=== PATIENT | female | born 1985 | race Caucasian/White ===

== ENCOUNTER → 2019-03-28 15:07 | Outpatient (BNVA) | payer MEDICAID, SELFPAY | PROVIDERS: Family Provider Nurse Practitioner Family; PCP Nurse Practitioner Family; Visit Provider Nurse Practitioner Family | DX: N89.8 Other specified noninflammatory disorders of vagina (principal); R10.2 Pelvic and perineal pain; Z12.4 Encounter for screening for malignant neoplasm of cervix; N39.0 Urinary tract infection, site not specified; N76.0 Acute vaginitis; B96.89 Other specified bacterial agents as the cause of diseases classified elsewhere | CPT/HCPCS: 36415; 80053; 81003; 85025; 87070; 87491; 87591; 87661; 88175 ==

== ENCOUNTER → 2019-04-19 10:30 | Outpatient (BNVA) | payer MEDICAID, SELFPAY | PROVIDERS: Family Provider Nurse Practitioner Family; PCP Nurse Practitioner Family; Visit Provider Nurse Practitioner Family | DX: N39.0 Urinary tract infection, site not specified (principal); N73.9 Female pelvic inflammatory disease, unspecified; A74.9 Chlamydial infection, unspecified | CPT/HCPCS: 81003 ==

== ENCOUNTER 2019-04-26 19:24 | Emergency (ER) | payer MEDICAID, SELFPAY ==
[2019-04-26 19:36] VITALS: BP 126/65; PULSE 64; RESP 16; TEMP 37; O2SAT 100; BMI 22.6
--- NOTE | 2019-04-26 19:48 | ED_ITS ---
Entered by Leandra Coats, acting as scribe for Dario Pyle DO HPI - Abdominal Pain General: Chief Complaint: Abdominal Pain Stated Complaint: vaginal pain Time Seen by Provider: 04/26/19 19:48 Source: patient Mode of arrival: ambulatory History of Present Illness: HPI narrative: 33 y/o female presents to the ED with complaint of abd pain and flank pain. Pt states she was seen at the [facility] and was dx with Chlamydia. She was started on abx and she is here tonight because her symptoms have not resolved. She reports pain that radiates into her pelvis, painful urination and malodorous discharge. MD elicited complaint: abdominal pain, flank pain and other (vaginal pain/discharge) Onset (ago): day(s) Pain Consistency: constant Location: RLQ, LLQ, L flank, R flank and Pelvis Relieving factors: nothing Context: recent antibiotic use Associated Symptoms: Reports dysuria; Denies chills, fever(s), hematochezia, melena, nausea and vomiting Related Data: Date of Last Menstrual Period: 04/11/19 Review of Systems Const: Denies: fever or chills Eyes: Denies: change in vision or blurry vision ENMT: Denies: painful swallowing, swelling of lips/tongue, bleeding gums or dental pain Card: Denies: chest pain, palpitations or swelling of feet/ankles Resp: Denies: shortness of breath or wheezing GI: Reports: abdominal pain; Denies: nausea, vomiting, rectal pain, blood in stool or black tarry stool : Reports: flank pain, painful urination, urinary urgency, vaginal odor, vaginal discharge and pelvic pain Musc: Reports: back pain; Denies: neck pain, redness or joint warmth Neuro: Denies: headache, dizziness, vertigo, confusion or seizure-like activity Psych: Denies: anxiety PFSH ED PFSH: Social History Smoking and tobacco status: never smoked Alcohol intake: never Lives independently: Yes Housing: Manufactured/Mobile home Marital status: Single History of recent travel: No Female Reproductive History: Date of last menstrual period: 04/11/19 Physical Exam Const: COMMON NORMALS: alert GENERAL APPEARANCE: well developed ORIENTATION/CONSCIOUSNESS: Yes awake, Yes oriented to person, Yes oriented to place and Yes oriented to time HENMT: COMMON NORMALS: normocephalic, external ears normal, external nose normal and moist oral mucous membranes HEAD & SCALP: normocephalic; no scalp tenderness FACE & SINUS: normal facial exam NOSE: external nose normal and no nasal discharge EXTERNAL EAR: Yes external ears normal MOUTH: tongue normal Eye: COMMON NORMALS: PERRL, EOMs intact bilaterally and conjunctivae normal EYELID: eyelids normal CONJUNCTIVA: Yes conjunctivae normal PUPIL: Yes PERRL Chest: COMMONS NORMALS: inspection of chest normal CHEST: Yes symmetrical chest wall rise and No tenderness Resp: COMMON NORMALS: clear to auscultation bilaterally EFFORT & INSPECTION: No tachypneic, No respiratory distress, No retractions, No uses accessory muscles and No tracheal deviation AUSCULTATION: clear to auscultation bilaterally, no rhonchi, no wheezes and lung sounds not diminished Cardio: COMMON NORMALS: regular rate and regular rhythm RATE: regular rate RHYTHM: regular rhythm HEART SOUNDS: no murmurs PERIPHERAL PULSES: radial pulses present GI: COMMON NORMALS: soft to palpation INSPECTION: No abdominal distension AUSCULTATION: No hyperactive bowel sounds and No hypoactive bowel sounds PALPATION: Yes soft, No guarding and No rigid PERCUSSION: no dullness to percussion and no tympanic to percussion : BLADDER/KIDNEY EXAM: Yes CVA tenderness EXTERNAL FEMALE EXAM: Yes normal appearance of the urethra and No external lesion SPECULUM EXAM - VAGINA: No vaginal lesion, No vaginal bleeding, No tissue present in vagina, No vaginal swelling, Yes vaginal tenderness and Yes vaginal discharge Vaginal discharge present: clear, white and other OB/EXTERNAL & SPECULUM: no tissue noted in vagina and vaginal bleeding Back/Pelvis: GENERAL BACK: Yes CVA tenderness Neuro: SENSORIUM/ORIENTATION: Yes alert, Yes oriented to person, Yes oriented to place and Yes oriented to time Psych: COMMON NORMALS: mental status grossly normal and speech normal SPEECH: Yes normal speech Course Vital Signs: Vital signs: Vital Signs Temperature 98.6 F 04/26/19 19:36 Pulse Rate 64 04/26/19 19:36 Respiratory Rate 16 04/26/19 19:36 Blood Pressure 126/65 04/26/19 19:36 Pulse Oximetry 100 04/26/19 19:36 MDM - Abdominal Pain MDM Narrative: Medical decision making narrative: 33-year-old female presents with pelvic pain and discharge. She has been treated for a positive chlamydia swab recently with doxycycline. She has an allergy to clarithromycin preventing her from having azithromycin. She may have failed doxycycline. In that case Levaquin would be used. She tested positive for group B strep as well on vaginal culture previously. Levaquin should cover this as well. Group B strep is resistant to tetracyclines. She will follow-up with her healthcare provider. Lab Data: Labs: Lab Results 04/26/19 Range/Units 20:35 Urine Color Yellow (Yellow) Urine Appearance Clear (CLEAR) Urine pH 6 (5-7) Ur Specific Gravit y 1.015 (1.005-1.030) Urine Protein Neg (Negative) Urine Glucose (UA) Norm (Normal) Urine Ketones Negative (Negative) Urine Blood Neg (Negative) Urine Nitrate Negative (Negative) Urine Bilirubin Neg (NEGATIVE) Urine Urobilinogen Norm (Negative) mg/dL Ur Leukocyte Natasha ase Negative (Negative) Discharge Plan Discharge Patient Disposition: Home, Self-Care Clinical Impression: Bacterial vaginal infection Condition: Stable Prescriptions: New Levaquin 500 mg tablet 500 mg PO DAILY 7 Days Qty: 7 RF: 0 ketorolac 10 mg tablet 10 mg PO TID PRN (Reason: pain) Qty: 10 RF: 0 Discharge Orders: Discharge Order (Routine); Ordered 04/26/19 Ordered By: Dario Pyle Referrals: Candy Ogden [Family Provider] - 4-7 days Discharge Diet: Usual diet Discharge Activity: Increase activity as tolerated Patient Instructions: Bacterial Vaginosis (ED) Activity Restrictions/Additional Instructions: Return for fever greater than 100, worsening pain despite treatment, vomiting, other concerning symptoms Coding Level of Care Code ED Angle Bender for Chg Fwd Exam Comprehensive The documentation recorded by the Jorge L arora Ashley, accurately reflects the service I personally performed and the decisions made by Edenilson lopez Jeremy John, DO Apr 26, 2019 19:24
[2019-04-26 20:47] LABS: Add Urine Microscopic? NO
[2019-04-26 20:51] LABS: Urine Appearance Clear (CLEAR); Urine Color Yellow (Yellow)
[2019-04-26 20:52] LABS: Bilirubin Urine Neg (NEGATIVE); Blood Urine Neg (Negative); Glucose Urine UA Norm (Normal); Ketones Urine Negative (Negative); Leukocyte Esterase Urine Negative (Negative); Nitrate Urine Negative (Negative); Protein Urine Neg (Negative); Specific Gravity, Urine 1.015 (1.005-1.030); Urobilinogen Urine Norm (Negative); pH Urine 6 (5-7)
[2019-04-26] MEDS: levoFLOXacin 500 mg Tablet PO (22:05)
[2019-04-26] MEDS: oxyCODONE-APAP 5-325 mg Tablet 2 TAB PO (22:07)
== END 2019-04-26 22:11 | disposition home or self-care (01) ==
PROVIDERS: Emergency Provider Emergency Medicine; Family Provider Nurse Practitioner Family
DX: N76.0 Acute vaginitis (principal); Z88.1 Allergy status to other antibiotic agents
CPT/HCPCS: 12345; 81003; 87210; 87491; 87591; 99283; A9270; E0352

== ENCOUNTER 2019-07-07 19:34 | Emergency (ER) | payer MEDICAID, SELFPAY ==
[2019-07-07 19:41] VITALS: BP 110/60; PULSE 62; RESP 16; TEMP 37.4; O2SAT 97; BMI 22.4
[2019-07-07 20:16] LABS: Basophils % 0.6 %; Eosinophils # 0.2 10^3/uL (0.0-0.8); Eosinophils % 2.7 %; Hematocrit 34.8 % (37.0-47.0); Hemoglobin 10.7 g/dL (11.5-15.3); Lymphocytes # 2.2 10^3/uL (0.8-4.8); Lymphocytes % 34.8 %; Mean Corpuscular HGB Conc 30.7 g/dL (30.0-36.0); Mean Corpuscular Hemoglobin 25.9 pg (28.0-34.0); Mean Corpuscular Volume 84.3 fL (81-99); Mean Platelet Volume 10.1 fL (7.4-10.4); Monocytes # 0.5 10^3/uL (0.2-0.9); Monocytes % 8.4 %; Neutrophils # 3.4 10^3/uL (1.8-7.7); Neutrophils % 53.2 %; Nucleated Red Blood Cells % 0 %; Platelet Count 291 10^3/cmm (130-400); Red Blood Count 4.13 10^6/uL (4.1-5.3); Red Cell Distribution Width 15.1 % (12.1-15.1); White Blood Count 6.3 10^3/uL (4.0-10.0)
[2019-07-07 20:24] LABS: INR 1.04 (0.8-1.2)
[2019-07-07 20:26] LABS: HCG, Serum Qual Negative (Negative)
[2019-07-07 20:34] LABS: Alanine Aminotransferase 11 U/L (0-33); Albumin Level 4.3 g/dL (3.5-5.2); Alkaline Phosphatase 54 IU/L (35-105); Anion Gap 13.9 (5-19); Aspartate Amino Transferase 13 U/L (0-32); Blood Urea Nitrogen 8 mg/dL (6-20); Calcium 9.7 mg/dL (8.5-10.5); Carbon Dioxide 24 mmol/L (22-29); Chloride 106 mmol/L (98-107); Globulin 2.9 g/dL (1.3-4.6); Glomerular Filtration Rate 71.7 mL/min (90-130); Glucose 92 mg/dL (65-115); Osmolality Calculated 286 mOsm/kg (285-295); Potassium 3.9 mmol/L (3.5-5.1); Sodium 140 mmol/L (136-145); Total Bilirubin 0.2 mg/dL (0.15-1.2); Total Protein 7.2 g/dL (6.6-8.7)
--- NOTE | 2019-07-07 20:36 | W.ED.FEMALGU ---
HPI - Female Genitourinary General: Chief complaint: Vaginal Bleeding Stated complaint: VAGINAL BLEEDING/PAIN; HX OF ENDOMETRIOSIS Time Seen by Provider: 07/07/19 19:47 History of Present Illness: HPI Narrative: Patient is a 34-year-old G4, P4 who is presenting today with a complaint of endometriosis. She says that she has had painful periods for a long time but is concerned today because she is had a period that started around June 21 and is still going on. She was seen at [facility] in April for endometriosis pain. She had an ultrasound there which she said showed endometriosis. She was given a follow-up with an SENIOR GENETIC COUNSELOR in [place] whom she has seen twice now. She was started on control pills but cannot remember when she started them. She said her bleeding has slowed down but is still heavier than just spotting. She is mainly complaining of pain. She also says she just overall does not feel well. She was also treated prior to her visit to [facility] for PID. 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 She has been taking ibuprofen and Tylenol at home without relief. MD elicited complaint: vaginal bleeding and pelvic pain Associated symptoms: Deny abdominal pain, headache(s) or nausea Date of Last Menstrual Period: 07/07/19 Related Data: : 4 Review of Systems General: Reports: 10 or more systems reviewed and unremarkable except in HPI and below Const: Denies: fever(s), chills, fatigue or malaise Eyes: Denies: change in vision ENMT: Denies: odynophagia Card: Denies: chest pain or swelling of feet/ankles Resp: Denies: dyspnea, productive cough or non-productive cough GI: Denies: abdominal pain, nausea or vomiting : Reports: vaginal bleeding and dysmenorrhea; Denies: flank pain or difficulty voiding Musc: Denies: neck pain or back pain Skin/Breast: Denies: rash Neuro: Denies: headache(s), numbness in extremities or weakness in extremities Gomez/Lymph: Denies: easy bruising or easy bleeding PFSH ED PFSH: Social History Smoking and tobacco status: never smoked Alcohol intake: never Lives independently: Yes Housing: Manufactured/Mobile home Marital status: Single History of recent travel: No Female Reproductive History: Date of last menstrual period: 07/07/19 control method: pills : 4 Para: 4 Spontaneous abortions: No Physical Exam Const: COMMON NORMALS: no acute distress, patient oriented x3, no limitations and alert GENERAL APPEARANCE: cooperative and comfortable HENMT: HEAD & SCALP: normal to inspection FACE & SINUS: normal facial exam Eye: GENERAL EYE: appearance normal, both eyes and all related structures Neck/C-Spine: COMMON NORMALS: supple, no meningeal signs and no JVD Chest: COMMONS NORMALS: normal inspection of the chest Resp: COMMON NORMALS: normal respiratory effort, No use of accessory muscles and clear to auscultation bilaterally AUSCULTATION: clear to auscultation bilaterally Cardio: COMMON NORMALS: no JVD, regular rate, regular rhythm and No murmurs present (Cardio) RATE: regular rate RHYTHM: regular rhythm GI: COMMON NORMALS: Normal to inspection, nondistended, normoactive bowel sounds present, Soft to palpation and non-tender INSPECTION: Yes normal to inspection AUSCULTATION: Yes normoactive bowel sounds PALPATION: Yes Soft to palpation Back/Pelvis: COMMON NORMALS: thoracic and lumbar spine normal to inspection Extremity: COMMON NORMALS: normal to inspection Neuro: COMMON NORMALS: patient oriented x3, moves all extremities, no focal motor deficits and no sensory deficits noted SENSORIUM/ORIENTATION: Yes alert MENINGEAL SIGNS: Yes no meningeal signs Psych: COMMON NORMALS: mental status grossly normal, cooperative and normal affect Skin: COMMON NORMALS: no rashes or lesions noted and turgor normal GENERAL SKIN EXAM: no rashes or lesions noted and turgor normal Course ED course: This patient is not . She is not significantly anemic. I recommended that she take ibuprofen, 600 mg and Tylenol 1000 mg at home for pain. She has follow-up with an SENIOR GENETIC COUNSELOR and had a recent ultrasound. I do not think there is anything further that we can do to either work-up or manage her symptoms here. We discussed the logic behind taking the control pills and she will continue those as prescribed. Vital Signs: Vital signs: Vital Signs Temperature 99.4 F 07/07/19 19:41 Pulse Rate 55 L 07/07/19 21:42 Respiratory Rate 16 07/07/19 21:42 Blood Pressure 110/60 07/07/19 21:42 Pulse Oximetry 98 07/07/19 21:42 MDM - Female Lab Data: Labs: Lab Results 07/07/19 07/07/19 07/07/19 Range/Units 20:00 20:00 20:00 WBC 6.3 (4.0-10.0) 10^3/ uL RBC 4.13 (4.1-5.3) 10^6/u L Hgb 10.7 L (11.5-15.3) g/dL Hct 34.8 L (37.0-47.0) % MCV 84.3 (81-99) fL MCH 25.9 L (28.0-34.0) pg MCHC 30.7 (30.0-36.0) g/dL RDW 15.1 (12.1-15.1) % Plt Count 291 (130-400) 10^3/c mm MPV 10.1 (7.4-10.4) fL Neut % (Auto) 53.2 % Lymph % (Auto) 34.8 % [place] % (Auto) 8.4 % Eos % (Auto) 2.7 % Baso % (Auto) 0.6 % Neut # (Auto) 3.4 (1.8-7.7) 10^3/u L Lymph # (Auto) 2.2 (0.8-4.8) 10^3/u L [place] # (Auto) 0.5 (0.2-0.9) 10^3/u L Eos # (Auto) 0.2 (0.0-0.8) 10^3/u L Baso # (Auto) 0.0 (0.0-0.1) 10^3/u L Nucleated RBC % (a uto) 0 % Nucleated RBCs # 0.0 /100WBC PT 14.00 H (10.5-13.3) SECO NDS INR 1.04 (0.8-1.2) Sodium 140 (136-145) mmol/L Potassium 3.9 (3.5-5.1) mmol/L Chloride 106 (98-107) mmol/L Carbon Dioxide 24 (22-29) mmol/L Anion Gap 13.9 (5-19) BUN 8 (6-20) mg/dL Creatinine 0.9 (0.5-0.9) mg/dL GFR Calculation 71.7 L (90-130) mL/min Glucose 92 (65-115) mg/dL Calculated Osmolal ity 286 (285-295) mOsm/k g Calcium 9.7 (8.5-10.5) mg/dL Total Bilirubin 0.2 (0.15-1.2) mg/dL AST 13 (0-32) U/L ALT 11 (0-33) U/L Alkaline Phosphata se 54 (35-105) IU/L Total Protein 7.2 (6.6-8.7) g/dL Albumin 4.3 (3.5-5.2) g/dL Globulin 2.9 (1.3-4.6) g/dL HCG, Qual (Negative) 07/07/19 Range/Units 20:00 WBC (4.0-10.0) 10^3/ uL RBC (4.1-5.3) 10^6/u L Hgb (11.5-15.3) g/dL Hct (37.0-47.0) % MCV (81-99) fL MCH (28.0-34.0) pg MCHC (30.0-36.0) g/dL RDW (12.1-15.1) % Plt Count (130-400) 10^3/c mm MPV (7.4-10.4) fL Neut % (Auto) % Lymph % (Auto) % [place] % (Auto) % Eos % (Auto) % Baso % (Auto) % Neut # (Auto) (1.8-7.7) 10^3/u L Lymph # (Auto) (0.8-4.8) 10^3/u L [place] # (Auto) (0.2-0.9) 10^3/u L Eos # (Auto) (0.0-0.8) 10^3/u L Baso # (Auto) (0.0-0.1) 10^3/u L Nucleated RBC % (a uto) % Nucleated RBCs # /100WBC PT (10.5-13.3) SECO NDS INR (0.8-1.2) Sodium (136-145) mmol/L Potassium (3.5-5.1) mmol/L Chloride (98-107) mmol/L Carbon Dioxide (22-29) mmol/L Anion Gap (5-19) BUN (6-20) mg/dL Creatinine (0.5-0.9) mg/dL GFR Calculation (90-130) mL/min Glucose (65-115) mg/dL Calculated Osmolal ity (285-295) mOsm/k g Calcium (8.5-10.5) mg/dL Total Bilirubin (0.15-1.2) mg/dL AST (0-32) U/L ALT (0-33) U/L Alkaline Phosphata se (35-105) IU/L Total Protein (6.6-8.7) g/dL Albumin (3.5-5.2) g/dL Globulin (1.3-4.6) g/dL HCG, Qual Negative (Negative) Discharge Plan Discharge Patient Disposition: Home, Self-Care Clinical Impression: Endometriosis Condition: Stable Prescriptions: No Action ketorolac 10 mg tablet 10 mg PO TID PRN (Reason: pain) Qty: 10 RF: 0 Discharge Orders: Discharge Order (Routine); Ordered 07/07/19 Ordered By: Anjali Beth Referrals: Candy Ogden [Family Provider] - Discharge Diet: Usual diet Discharge Activity: Resume usual activity Patient Instructions: Endometriosis (ED) Activity Restrictions/Additional Instructions: You can take 600 mg of ibuprofen (3 tablets of over the counter strength) every 6 hours AND 1000 mg of tylenol every 4 hours (two extra strength tablets) if you need to for pain. Call your SENIOR GENETIC COUNSELOR doctor in [place] for a follow up appointment. Continue the control pills as instructed. Discharge Date/Time: 07/07/19 21:44 Coding Level of Care Code ED Home Energy Auditor for Chg Fwd Exam Comprehensive
[2019-07-07] MEDS: ketorolac 30 mg/mL INJ 15 MG IVP (20:37)
[2019-07-07 20:38] VITALS: BP 111/63; PULSE 53; RESP 19; O2SAT 98
[2019-07-07 21:42] VITALS: BP 110/60; PULSE 55; RESP 16; O2SAT 98
== END 2019-07-07 21:44 | disposition home or self-care (01) ==
PROVIDERS: Emergency Provider Emergency Medicine; Family Provider Nurse Practitioner Family
DX: N80.9 Endometriosis, unspecified (principal)
CPT/HCPCS: 12345; 80053; 84703; 85025; 85610; 96374; 96375; 99282; 99283; J1885

== ENCOUNTER 2022-01-16 21:53 | Observation (INO) | payer MEDICAID, SELFPAY ==
--- NOTE | 2022-01-16 22:03 | ED_ITS ---
Documented by User: Justin Arias MD 01/28/22 21:32 HPI - Chest Pain General: Chief Complaint: Chest Pain Stated Complaint: CP Time Seen by Provider: 01/16/22 22:03 History of Present Illness: Ms. Mcclain is a 36-year-old lady without significant past medical history presenting to the emergency department due to chest pain. She reports a few day onset of scratchy throat and nasal congestion and subsequently mild to moderate intensity chest pain that started around 9 PM this evening. Reports generalized malaise and some lightheadedness. Intensity symptoms is moderate. Course has worsened. 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 No family history of early cardiac . No other risk factors for premature CAD. No other specific changes in health, exacerbating, or alleviating factors identified. Onset (ago): day(s) Timing of current episode: increasing Prior episodes: No Onset: during rest Pain location: substernal Severity: moderate Associated symptoms: Reports other Review of Systems General: Reports: 10 or more systems reviewed and unremarkable except in HPI and below PFSH ED PFSH: Medical History Acute urinary tract infection Surgical History History of partial hysterectomy Family History Denies family history of CAD (coronary artery disease) Social History Smoking and tobacco status: never smoked Alcohol intake: never Lives independently: Yes Housing: Manufactured/Mobile home Marital status: Single History of recent travel: No Female Reproductive History: Date of last menstrual period: 07/07/19 Para: 4 Spontaneous abortions: No Physical Exam Const: COMMON NORMALS: alert GENERAL APPEARANCE: cooperative and well developed HENMT: COMMON NORMALS: normocephalic and atraumatic HEAD & SCALP: normocephalic and atraumatic Eye: COMMON NORMALS: conjunctivae normal CONJUNCTIVA: Yes conjunctivae normal SCLERA: sclerae normal Neck/C-Spine: COMMON NORMALS: supple GENERAL: Yes trachea midline Resp: COMMON NORMALS: clear to auscultation bilaterally EFFORT & INSPECTION: Yes able to speak in complete sentences AUSCULTATION: clear to auscultation bilaterally Cardio: COMMON NORMALS: regular rate and regular rhythm RATE: regular rate RHYTHM: regular rhythm GI: COMMON NORMALS: Soft to palpation PALPATION: Yes Soft to palpation and No Tenderness to palpation present (GI) Extremity: GENERAL: Yes normal exam except as noted and No edema Neuro: COMMON NORMALS: moves all extremities SENSORIUM/ORIENTATION: Yes alert and No Orientation impaired Psych: COMMON NORMALS: mental status grossly normal and Normal thought process present THOUGHT PROCESS: Normal thought process present Course Vital Signs: Vital signs: Vital Signs Temperature 98.5 F 01/17/22 12:23 Pulse Rate 75 01/17/22 12:23 Respiratory Rate 18 01/17/22 12:23 Blood Pressure 105/70 01/17/22 12:23 Pulse Oximetry 98 01/17/22 12:23 Oxygen Delivery Me thod 01/17/22 11:51 MDM - Chest Pain Medical Decision Making 36-year-old female presenting with chest discomfort and a few day history of generalized illness. Nontoxic on exam. EKG shows sinus rhythm with nonspecific ST segment abnormalities, no STEMI. Handed off to Dr. Huff pending completion of ED evaluation. 36-year-old female checked out to me at shift change by Dr. Arias. I have examined this patient as well. This young lady admits to being somewhat confused. She does not believe she is thinking correctly. She is a little strange, and perhaps a bit paranoid at times. She is incredibly nice. Laboratory testing reveals a normal CBC. Originally, her sodium was 127, p otassium 3.1. Potassium was repleted. She was given a liter of IV fluid. Since her initial blood draw, however, the patient has had at least 432 ounce cups of water. When asked why, she believes that she is dehydrated, and is quite thirsty because of the low sodium, and significant free water intake, sodium is repeated and shows a sodium down to 123. Her mental status is a bit worse, and she agrees that it is. This is mildly to moderately concerning given the short time in which her sodium is fallen. Chest x-ray had been ordered and shows no acute findings. Head CT is nonacute as well. CT of the abdomen and pelvis shows prominent fluid in the small bowel reflecting an enterocolitis essentially. Her swabs are negative for COVID and influenza. She wishes to stay, as she is scared and feels quite unwell. She is given a second liter bolus of normal saline, and will be put on maintenance fluid with slow sodium repletion. She will be observed. Hospitalist is aware and has agreed to see the patient. Medical Records I reviewed the patient's medical records. Lab Data I reviewed the patient's lab results. 01/16/22 22:20 01/16/22 22:20 Radiology Impressions Chest X-Ray 01/16/22 22:18 IMPRESSION: No acute findings. Head CT 01/16/22 23:57 IMPRESSION: No acute intracranial abnormality. Abdomen/Pelvis CT 01/16/22 23:58 IMPRESSION: Prominent in the small bowel and colon may reflect an enterocolitis in the appropriate clinical setting. Laboratory Results WBC 7.9 10^3/uL (4.0-10.0) 01/16/22 22:20 RBC 4.69 10^6/uL (4.1-5.3) 01/16/22 22:20 Hgb 13.3 g/dL (11.5-15.3) 01/16/22 22:20 Hct 41.0 % (37.0-47.0) 01/16/22 22:20 MCV 87.4 fl (81-99) 01/16/22 22:20 MCH 28.4 pg (28.0-34.0) 01/16/22 22:20 MCHC 32.4 g/dL (30.0-36.0) 01/16/22 22:20 RDW 12.8 % (12.1-15.1) 01/16/22 22:20 Plt Count 186 10^3/cmm (130-400) 01/16/22 22:20 MPV 9.6 fL (7.4-10.4) 01/16/22 22:20 Neut % (Auto) 75.6 % 01/16/22 22:20 Lymph % (Auto) 13.0 % 01/16/22 22:20 [place] % (Auto) 9.5 % 01/16/22 22:20 Eos % (Auto) 1.1 % 01/16/22 22:20 Baso % (Auto) 0.3 % 01/16/22 22:20 Neut # (Auto) 5.95 10^3/uL (1.8-7.7) 01/16/22 22:20 Lymph # (Auto) 1.0 10^3/uL (0.8-4.8) 01/16/22 22:20 [place] # (Auto) 0.8 10^3/uL (0.2-0.9) 01/16/22 22:20 Eos # (Auto) 0.1 10^3/uL (0.0-0.8) 01/16/22 22:20 Baso # (Auto) 0.0 10^3/uL (0.0-0.1) 01/16/22 22:20 Nucleated RBC % (auto) 0 % 01/16/22 22:20 Nucleated RBCs # 0.0 /100WBC 01/16/22 22:20 Sodium 139 mmol/L (136-145) D 01/17/22 04:10 Potassium 3.3 mmol/L (3.5-5.1) L 01/17/22 04:10 Chloride 105 mmol/L (98-107) 01/17/22 04:10 Carbon Dioxide 20 mmol/L (22-29) L 01/17/22 04:10 Anion Gap 17.3 (5-19) 01/17/22 04:10 BUN 3 mg/dL (6-20) L 01/17/22 04:10 Creatinine 0.7 mg/dL (0.5-0.9) 01/17/22 04:10 GFR Calculation 94.7 mL/min (90-130) 01/17/22 04:10 Glucose 106 mg/dL (65-115) 01/17/22 04:10 Calculated Osmolality 285 mOsm/kg (285-295) 01/17/22 04:10 Uric Acid 3.1 mg/dL (2.4-5.7) 01/17/22 04:10 Calcium 9.1 mg/dL (8.5-10.5) 01/17/22 04:10 Total Bilirubin 0.4 mg/dL (0.15-1.2) 01/16/22 22:20 AST 36 U/L (0-32) H 01/16/22 22:20 ALT 75 U/L (0-33) H 01/16/22 22:20 Alkaline Phosphatase 63 U/L (35-105) 01/16/22 22:20 Troponin T Baseline 6 ng/L (0-10) 01/16/22 22:20 Troponin T 120 Minute 6.00 ng/L (0-10) 01/17/22 01:34 Delta Troponin T 0 ABS# (0-10) 01/17/22 01:34 Troponin T Hi Sens 6Hr 6.00 ng/L (0-10) 01/17/22 04:10 Troponin T Hi Sens 6Hr Delta 0 ng/L (0-12) 01/17/22 04:10 Total Protein 6.7 g/dL (6.6-8.7) 01/16/22 22:20 Albumin 3.8 g/dL (3.5-5.2) 01/16/22 22:20 Globulin 2.9 g/dL (1.3-4.6) 01/16/22 22:20 Procalcitonin 0.11 ng/mL (0-0.5) 01/17/22 04:10 TSH 2.62 uIU/mL (0.27-4.20) 01/17/22 04:10 TSH Cancelled 01/17/22 04:10 Random Cortisol 8.05 ug/dL (2.47-19.5) 01/17/22 04:10 Urine Color Colorless (Yellow) 01/16/22 22:54 Urine Appearance Clear (CLEAR) 01/16/22 22:54 Urine pH 6.5 (5-7) 01/16/22 22:54 Ur Specific [place] 1.000 (1.005-1.030) L 01/16/22 22:54 Urine Protein Neg (Negative) 01/16/22 22:54 Urine Glucose (UA) Norm (Normal) 01/16/22 22:54 Urine Ketones 1+ (Negative) H 01/16/22 22:54 Urine Blood Neg (Negative) 01/16/22 22:54 Urine Nitrate Negative (Negative) 01/16/22 22:54 Urine Bilirubin Neg (Negative) 01/16/22 22:54 Urine Urobilinogen Neg mg/dL (Negative) 01/16/22 22:54 Ur Leukocyte Esterase Negative (Negative) 01/16/22 22:54 Ur Random Sodium 10 mmol/L 01/16/22 22:54 Urine Opiates Screen Negative ng/mL (Negative) 01/16/22 22:54 Ur Barbiturates Screen Negative ng/mL (Negative) 01/16/22 22:54 Ur Phencyclidine Scrn Negative ng/mL (Negative) 01/16/22 22:54 Ur Amphetamines Screen Negative ng/mL (Negative) 01/16/22 22:54 U Benzodiazepines Scrn Negative ng/mL (Negative) 01/16/22 22:54 Urine Cocaine Screen Negative ng/mL (Negative) 01/16/22 22:54 U Marijuana (THC) Screen Negative ng/mL (Negative) 01/16/22 22:54 Influenza Type A Ag negative (Negative) 01/16/22 22:48 Influenza Type B Ag negative (Negative) 01/16/22 22:48 SARS-CoV-2 Ag (Rapid) negative (Negative) 01/16/22 22:48 Group A Strep Rapid Negative (Negative) 01/16/22 22:48 Discharge Plan Discharge Patient Disposition: Placed in Observation Admit Provider: Adalberto Aragon Clinical Impression: URI (upper respiratory infection), Gastroenteritis, Acute hyponatremia Discharge Diet: Regular Discharge Activity: Increase activity as tolerated Coding Level of Care Code ED Awning Maker for Chg Fwd Documented by User: Dario Pyle DO 01/17/22 03:11 HPI - Chest Pain General: Chief Complaint: Chest Pain Stated Complaint: CP Time Seen by Provider: 01/16/22 22:03 [facility] ED PFSH: Medical History Acute urinary tract infection Surgical History History of partial hysterectomy Family History Denies family history of CAD (coronary artery disease) Social History Smoking and tobacco status: never smoked Alcohol intake: never Lives independently: Yes Housing: Manufactured/Mobile home Marital status: Single History of recent travel: No Course Vital Signs: Vital signs: Vital Signs Temperature 98.5 F 01/17/22 12:23 Pulse Rate 75 01/17/22 12:23 Respiratory Rate 18 01/17/22 12:23 Blood Pressure 105/70 01/17/22 12:23 Pulse Oximetry 98 01/17/22 12:23 Oxygen Delivery Me thod 01/17/22 11:51 MDM - Chest Pain Medical Decision Making 36-year-old female checked out to me at shift change by Dr. Arias. I have examined this patient as well. This young lady admits to being somewhat co nfused. She does not believe she is thinking correctly. She is a little strange, and perhaps a bit paranoid at times. She is incredibly nice. Laboratory testing reveals a normal CBC. Originally, her sodium was 127, potassium 3.1. Potassium was repleted. She was given a liter of IV fluid. Sin ce her initial blood draw, however, the patient has had at least 432 ounce cups of water. When asked why, she believes that she is dehydrated, and is quite thirsty because of the low sodium, and significant free water intake, sodium is repeated and shows a sodium down to 123. Her mental status is a bit worse, and she agrees that it is. This is mildly to moderately concerning given the short time in which her sodium is fallen. Chest x-ray had been ordered and shows no acute findings. Head CT is nonacute as well. CT of the abdomen and pelvis shows prominent fluid in the small bowel reflecting an enterocolitis essentially. Her swabs are negative for COVID and influenza. She wishes to stay, as she is scared and feels quite unwell. She is given a second liter bolus of normal saline, and will be put on maintenance fluid with slow sodium repletion. She will be observed. Hospitalist is aware and has agreed to see the patient. Lab Data 01/16/22 22:20 01/16/22 22:20 Radiology Impressions Chest X-Ray 01/16/22 22:18 IMPRESSION: No acute findings. Head CT 01/16/22 23:57 IMPRESSION: No acute intracranial abnormality. Abdomen/Pelvis CT 01/16/22 23:58 IMPRESSION: Prominent in the small bowel and colon may reflect an enterocolitis in the appropriate clinical setting. Laboratory Results WBC 7.9 10^3/uL (4.0-10.0) 01/16/22 22: RBC 4.69 10^6/uL (4.1-5.3) 01/16/22 22:20 Hgb 13.3 g/dL (11.5-15.3) 01/16/22 22:20 Hct 41.0 % (37.0-47.0) 01/16/22 22:20 MCV 87.4 fl (81-99) 01/16/22 22:20 MCH 28.4 pg (28.0-34.0) 01/16/22 22: MCHC 32.4 g/dL (30.0-36.0) 01/16/22 22: RDW 12.8 % (12.1-15.1) 01/16/22 22:20 Plt Count 186 10^3/cmm (130-400) 01/16/22 22:20 MPV 9.6 fL (7.4-10.4) 01/16/22 22:20 Neut % (Auto) 75.6 % 01/16/22 22:20 Lymph % (Auto) 13.0 % 01/16/22 22:20 [place] % (Auto) 9.5 % 01/16/22 22:20 Eos % (Auto) 1.1 % 01/16/22 22:20 Baso % (Auto) 0.3 % 01/16/22 22:20 Neut # (Auto) 5.95 10^3/uL (1.8-7.7) 01/16/22 22:20 Lymph # (Auto) 1.0 10^3/uL (0.8-4.8) 01/16/22 22:20 [place] # (Auto) 0.8 10^3/uL (0.2-0.9) 01/16/22 22:20 Eos # (Auto) 0.1 10^3/uL (0.0-0.8) 01/16/22 22:20 Baso # (Auto) 0.0 10^3/uL (0.0-0.1) 01/16/22 22:20 Nucleated RBC % (auto) 0 % 01/16/22 22:20 Nucleated RBCs # 0.0 /100WBC 01/16/22 22:20 Sodium 139 mmol/L (136-145) D 01/17/22 04:10 Potassium 3.3 mmol/L (3.5-5.1) L 01/17/22 04:10 Chloride 105 mmol/L (98-107) 01/17/22 04:10 Carbon Dioxide 20 mmol/L (22-29) L 01/17/22 04:10 Anion Gap 17.3 (5-19) 01/17/22 04:10 BUN 3 mg/dL (6-20) L 01/17/22 04:10 Creatinine 0.7 mg/dL (0.5-0.9) 01/17/22 04:10 GFR Calculation 94.7 mL/min (90-130) 01/17/22 04:10 Glucose 106 mg/dL (65-115) 01/17/22 04:10 Calculated Osmolality 285 mOsm/kg (285-295) 01/17/22 04:10 Uric Acid 3.1 mg/dL (2.4-5.7) 01/17/22 04:10 Calcium 9.1 mg/dL (8.5-10.5) 01/17/22 04:10 Total Bilirubin 0.4 mg/dL (0.15-1.2) 01/16/22 22:20 AST 36 U/L (0-32) H 01/16/22 22:20 ALT 75 U/L (0-33) H 01/16/22 22:20 Alkaline Phosphatase 63 U/L (35-105) 01/16/22 22:20 Troponin T Baseline 6 ng/L (0-10) 01/16/22 22:20 Troponin T 120 Minute 6.00 ng/L (0-10) 01/17/22 01:34 Delta Troponin T 0 ABS# (0-10) 01/17/22 01:34 Troponin T Hi Sens 6Hr 6.00 ng/L (0-10) 01/17/22 04:10 Troponin T Hi Sens 6Hr Delta 0 ng/L (0-12) 01/17/22 04:10 Total Protein 6.7 g/dL (6.6-8.7) 01/16/22 22:20 Albumin 3.8 g/dL (3.5-5.2) 01/16/22 22:20 Globulin 2.9 g/dL (1.3-4.6) 01/16/22 22:20 Procalcitonin 0.11 ng/mL (0-0.5) 01/17/22 04:10 TSH 2.62 uIU/mL (0.27-4.20) 01/17/22 04:10 TSH Cancelled 01/17/22 04:10 Random Cortisol 8.05 ug/dL (2.47-19.5) 01/17/22 04:10 Urine Color Colorless (Yellow) 01/16/22 22:54 Urine Appearance Clear (CLEAR) 01/16/22 22:54 Urine pH 6.5 (5-7) 01/16/22 22:54 Ur Specific [place] 1.000 (1.005-1.030) L 01/16/22 22:54 Urine Protein Neg (Negative) 01/16/22 22:54 Urine Glucose (UA) Norm (Normal) 01/16/22 22:54 Urine Ketones 1+ (Negative) H 01/16/22 22:54 Urine Blood Neg (Negative) 01/16/22 22:54 Urine Nitrate Negative (Negative) 01/16/22 22:54 Urine Bilirubin Neg (Negative) 01/16/22 22:54 Urine Urobilinogen Neg mg/dL (Negative) 01/16/22 22:54 Ur Leukocyte Esterase Negative (Negative) 01/16/22 22:54 Ur Random Sodium 10 mmol/L 01/16/22 22:54 Urine Opiates Screen Negative ng/mL (Negative) 01/16/22 22:54 Ur Barbiturates Screen Negative ng/mL (Negative) 01/16/22 22:54 Ur Phencyclidine Scrn Negative ng/mL (Negative) 01/16/22 22:54 Ur Amphetamines Screen Negative ng/mL (Negative) 01/16/22 22:54 U Benzodiazepines Scrn Negative ng/mL (Negative) 01/16/22 22:54 Urine Cocaine Screen Negative ng/mL (Negative) 01/16/22 22:54 U Marijuana (THC) Screen Negative ng/mL (Negative) 01/16/22 22:54 Influenza Type A Ag negative (Negative) 01/16/22 22:48 Influenza Type B Ag negative (Negative) 01/16/22 22:48 SARS-CoV-2 Ag (Rapid) negative (Negative) 01/16/22 22:48 Group A Strep Rapid Negative (Negative) 01/16/22 22:48 Discharge Plan Discharge Patient Disposition: Placed in Observation Admit Provider: Adalberto Aragon Clinical Impression: URI (upper respiratory infection), Gastroenteritis, Acute hyponatremia Discharge Diet: Regular Discharge Activity: Increase activity as tolerated Coding Level of Care Code ED Awning Maker for Kunal Osman
[2022-01-16 22:08] VITALS: BP 126/82; PULSE 74; RESP 16; TEMP 36.6; O2SAT 99; BMI 20.7
[2022-01-16 22:14] VITALS: BP 131/57; PULSE 79; RESP 18; O2SAT 100
--- NOTE | 2022-01-16 22:18 | XRR_ITS ---
PROCEDURE INFORMATION: Exam: XR Chest Exam date and time: 01/16/2022 10:24 PM Age: 36 years old Clinical indication: Cough TECHNIQUE: Imaging protocol: Radiologic exam of the chest. Views: 1 view. COMPARISON: No relevant prior studies available. FINDINGS: Lungs: Unremarkable. No consolidation. Pleural spaces: Unremarkable. No pleural effusion. No pneumothorax. Heart/Mediastinum: Unremarkable. No cardiomegaly. Bones/joints: Unremarkable. XR/XR chest 1V portable [id number] IMPRESSION: No acute findings.
[2022-01-16 22:27] LABS: Basophils % 0.3 %; Eosinophils # 0.1 10^3/uL (0.0-0.8); Eosinophils % 1.1 %; Hemoglobin 13.3 g/dL (11.5-15.3); Mean Corpuscular HGB Conc 32.4 g/dL (30.0-36.0); Mean Corpuscular Hemoglobin 28.4 pg (28.0-34.0); Mean Corpuscular Volume 87.4 fl (81-99); Mean Platelet Volume 9.6 fL (7.4-10.4); Monocytes # 0.8 10^3/uL (0.2-0.9); Monocytes % 9.5 %; Neutrophils # 5.95 10^3/uL (1.8-7.7); Neutrophils % 75.6 %; Nucleated Red Blood Cells % 0 %; Platelet Count 186 10^3/cmm (130-400); Red Blood Count 4.69 10^6/uL (4.1-5.3); Red Cell Distribution Width 12.8 % (12.1-15.1); White Blood Count 7.9 10^3/uL (4.0-10.0)
[2022-01-16 22:41] LABS: Alanine Aminotransferase 75 U/L (0-33); Albumin Level 3.8 g/dL (3.5-5.2); Alkaline Phosphatase 63 U/L (35-105); Aspartate Amino Transferase 36 U/L (0-32); Blood Urea Nitrogen 4 mg/dL (6-20); Calcium 8.9 mg/dL (8.5-10.5); Carbon Dioxide 25 mmol/L (22-29); Chloride 91 mmol/L (98-107); Globulin 2.9 g/dL (1.3-4.6); Glomerular Filtration Rate 113.1 mL/min (90-130); Glucose 99 mg/dL (65-115); Osmolality Calculated 261 mOsm/kg (285-295); Sodium 127 mmol/L (136-145); Total Bilirubin 0.4 mg/dL (0.15-1.2); Total Protein 6.7 g/dL (6.6-8.7)
[2022-01-16] MEDS: acetaminophen 500 mg Tablet 1000 MG PO (22:50)
[2022-01-16] MEDS: ketorolac 30 mg/mL INJ 15 MG IVP (22:50)
[2022-01-16] MEDS: sodium chloride 0.9% 1,000 ML 999 ML IV (22:51)
--- NOTE | 2022-01-16 23:00 | ECG_ITS ---
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 Measurements Intervals [place] Rate: 65 P: 47 VT: 144 QRS: 52 QRSD: 86 T: -19 QT: 406 QTc: 424 Interpretive Statements SINUS RHYTHM NONSPECIFIC T-WAVE ABNORMALITY No previous ECG available for comparison Electronically Signed On 01-17-2022 19:05:20 SWITCH CLEANER by Marciano Flores M.D. [id number]
[2022-01-16 23:10] LABS: Anion Gap 14.1 (5-19); Potassium 3.1 mmol/L (3.5-5.1)
[2022-01-16 23:10] LABS: Add Urine Microscopic? NO; Charge for UA Resulting for Rev
[2022-01-16 23:14] VITALS: BP 120/52; PULSE 71; RESP 18; O2SAT 100
[2022-01-16 23:25] LABS: Troponin(5th) Baseline 6 ng/L (0-10)
[2022-01-16 23:27] LABS: Glucose Urine UA Norm (Normal); Protein Urine Neg (Negative); Urine Appearance Clear (CLEAR); Urine Color Colorless (Yellow); pH Urine 6.5 (5-7)
[2022-01-16 23:28] LABS: Bilirubin Urine Neg (Negative); Blood Urine Neg (Negative); Ketones Urine 1+ (Negative); Leukocyte Esterase Urine Negative (Negative); Nitrate Urine Negative (Negative); Urobilinogen Urine Neg (Negative)
[2022-01-16] MEDS: potassium chloride oral liq 20 mEq/15 mL UDC 40 MEQ PO (23:33)
[2022-01-16 23:43] LABS: Rapid Strep A Test Negative (Negative)
[2022-01-16 23:46] LABS: Influenza A by IFA negative (Negative); Influenza B by IFA negative (Negative)
[2022-01-16 23:48] LABS: SARS Covid-2 Antigen negative (Negative)
--- NOTE | 2022-01-16 23:57 | CTR_ITS ---
PROCEDURE INFORMATION: Exam: CT Head Without Contrast Exam date and time: 01/17/2022 12:15 AM Age: 36 years old Clinical indication: Pain; Altered mental status/memory loss; Headache; Additional info: ? AMS, headaches, congestion TECHNIQUE: Imaging protocol: Computed tomography of the head without contrast. Radiation optimization: All CT scans at this facility use at least one of these dose optimization techniques: automated exposure control; mA and/or kV adjustment per patient size (includes targeted exams where dose is matched to clinical indication); or iterative reconstruction. COMPARISON: No relevant prior studies available. RADIATION DOSE METRICS: Total DLP (mGy-cm): 962.33 FINDINGS: Brain: Normal. No hemorrhage. Unremarkable white matter. No mass effect. Cerebral ventricles: No ventriculomegaly. Paranasal sinuses: Visualized sinuses are unremarkable. No fluid levels. Mastoid air cells: Visualized mastoid air cells are well aerated. Bones/joints: Unremarkable. No acute fracture. Soft tissues: Unremarkable. CT/CT head wo con* [id number] IMPRESSION: No acute intracranial abnormality.
--- NOTE | 2022-01-16 23:58 | CTR_ITS ---
PROCEDURE INFORMATION: Exam: CT Abdomen And Pelvis With Contrast Exam date and time: 01/17/2022 12:18 AM Age: 36 years old Clinical indication: Abdominal pain; Additional info: ? AMS, abd/pelvic pain TECHNIQUE: Imaging protocol: Computed tomography of the abdomen and pelvis with contrast. Radiation optimization: All CT scans at this facility use at least one of these dose optimization techniques: automated exposure control; mA and/or kV adjustment per patient size (includes targeted exams where dose is matched to clinical indication); or iterative reconstruction. Contrast material: OMNIPAQUE 350; Contrast volume: 100 ml; Contrast route: INTRAVENOUS (IV); COMPARISON: CR (CHEST, ) 01/16/2022 10:24 PM RADIATION DOSE METRICS: Total DLP (mGy-cm): 376.86 FINDINGS: Liver: Normal. No mass. Gallbladder and bile ducts: Normal. No calcified stones. No ductal dilation. Pancreas: Normal. No ductal dilation. Spleen: Normal. No splenomegaly. Adrenal glands: Normal. No mass. Kidneys and ureters: Normal. No hydronephrosis. Stomach and bowel: Prominent in the small bowel and colon may reflect an enterocolitis in the appropriate clinical setting. Appendix: No evidence of appendicitis. Intraperitoneal space: Unremarkable. No free air. No significant fluid collection. Vasculature: Unremarkable. No abdominal aortic aneurysm. Lymph nodes: Unremarkable. No enlarged lymph nodes. Urinary bladder: Unremarkable as visualized. Reproductive: Unremarkable as visualized. Bones/joints: Unremarkable. No acute fracture. Soft tissues: Unremarkable. CT/CT abdomen pelvis w con* [id number] IMPRESSION: Prominent in the small bowel and colon may reflect an enterocolitis in the appropriate clinical setting.
[2022-01-17] VITALS (11 sets, daily range): BP systolic 105–114; BP diastolic 61–82; PULSE 66–80; RESP 16–18; TEMP 36.8–36.9; O2SAT 96–100
[2022-01-17] MEDS: iohexol 350 mg/mL 500 mL Btl (per mL) IV (00:19)
[2022-01-17 00:32] LABS: Amphetamines Screen Urine Negative (Negative); Barbiturates Screen Urine Negative (Negative); Benzodiazepines Screen Urine Negative (Negative); Cocaine Screen Urine Negative (Negative); Opiate Screen Urine Negative (Negative); PCP Screen Urine Negative (Negative); THC Screen Urine Negative (Negative)
--- NOTE | 2022-01-17 00:51 | ECG_ITS ---
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 Measurements Intervals [place] Rate: 71 P: 62 OR: 141 QRS: 60 QRSD: 91 T: 48 QT: 431 QTc: 471 Interpretive Statements SINUS RHYTHM Compared to ECG 01/16/2022 22:12:14 T-wave abnormality no longer present Electronically Signed On 01-17-2022 19:05:44 TYPE CASTING MACHINE OPERATOR by Marciano Flores M.D. [id number]
--- NOTE | 2022-01-17 01:09 | PC.NURSE ---
Pt has been drinking excessive amounts of water since arrival. Pt has been sneaking water from sink once told she couldnt have anymore. Estimated 4-5 'Yeti' cups of water. notified. Pt educated on over-hydration with hyponatremia and hypokalemia.
[2022-01-17 02:04] LABS: Anion Gap 11.7 (5-19); Blood Urea Nitrogen 4 mg/dL (6-20); Calcium 8.7 mg/dL (8.5-10.5); Carbon Dioxide 21 mmol/L (22-29); Chloride 94 mmol/L (98-107); Glomerular Filtration Rate 113.1 mL/min (90-130); Glucose 90 mg/dL (65-115); Osmolality Calculated 252 mOsm/kg (285-295); Potassium 3.7 mmol/L (3.5-5.1); Sodium 123 mmol/L (136-145)
[2022-01-17] MEDS: guaiFENesin-codeine UDC 10 mL PO (02:06)
[2022-01-17] MEDS: oxymetazoline 0.05% Nasal Spray 15 mL 2 SPRAY NOSTRIL-B (02:06)
[2022-01-17 02:14] LABS: Troponin 5 2HR Delta 0 ABS# (0-10)
[2022-01-17] MEDS: ipratropium-albuterol 3 mL Neb INHALATION (02:32)
[2022-01-17] MEDS: sodium chloride 0.9% 1,000 ML 999 ML IV (02:54)
--- NOTE | 2022-01-17 03:27 | PM.HP ---
Providers/Chief Complaint Chief Complaint: CP History of Present Illness Neyda Mcclain is a 36 year old female who presented to hospital with chief complaint of nasal congestion. Patient is stating that she has been struggling with sinus infection for last 4 days, she has not noticed any fever, nausea, vomiting chest pain however because of her nasal congestion it is harder for her to breathe through her nose that prompted her visit the ER. In the ER she was diagnosed with hyponatremia. Because of sore throat she has been drinking more than 10 big cups of water, her cup can contain up to 700 ml, she does not have any significant past medical history other than VSD. She does not smoke, drinks occasionally. No recent use of antibiotics. In the ER she was given IV fluids that dropped her sodium to 123, decision was made to admit her put her on fluid restriction COVID, influenza panel negative Review of Systems Const: Denies: fever(s) Eyes: Denies: change in vision ENMT: Denies: throat pain Card: Denies: chest pain Resp: Reports: dyspnea GI: Denies: abdominal pain : Denies: flank pain Musc: Denies: neck pain Skin/Breast: Denies: rash Neuro: Denies: headache(s) Psych: Reports: anxiety Endo: Denies: polyuria Gomez/Lymph: Denies: easy bruising All/Imm: Denies: urticaria Medications/Allergies Home Medications Medication Instructions Recorded Confirmed Last Taken Type ketorolac 10 mg tablet 10 mg PO TID PRN pain #10 tabs 04/26/19 Unknown Rx Allergies Allergy/AdvReac Type Severity Reaction Status Date / Time clarithromycin [From Biaxin] Allergy ALGY-Hives Verified 04/19/19 09:55 PFSH Acute PFSH: Medical History (Updated 01/17/22 @ 04:17 by Adalberto Aragon MD) Acute urinary tract infection Surgical History (Updated 01/17/22 @ 04:17 by Adalberto Aragon MD) History of partial hysterectomy Family History (Updated 01/17/22 @ 04:18 by Adalberto Aragon MD) Denies family history of CAD (coronary artery disease) Social History Smoking and tobacco status: never smoked Alcohol intake: never Lives independently: Yes Housing: Manufactured/Mobile home Marital status: Single History of recent travel: No Female Reproductive History: Date of last menstrual period: 07/07/19 Para: 4 Spontaneous abortions: No Vitals/I&O/Wt Last Vital Signs Temp 97.9 F 01/16/22 22:08 Pulse 68 01/17/22 03:14 Resp 18 01/17/22 03:14 BP 107/64 01/17/22 03:14 Pulse Ox 98 01/17/22 03:14 O2 Del Method 01/17/22 02:33 01/16/22 01/16/22 01/17/22 14:59 22:59 06:59 Intake Total 1000 / 1000 Balance 1000 / 1000 Weight last 48 hrs Weight 54.885 kg Physical Exam Narrative: Young female NIH 0 Anxious appearing S1, S2 Nasal congestion No audible stridor or wheezing Abdomen soft Nonfocal neuro exam No skin rash Looks euvolemic Data 01/16/22 22:20 01/17/22 01:34 A&P Assessment and plan (1) Gastroenteritis: (2) Acute hyponatremia: (3) URI (upper respiratory infection): Plan Enterocolitis Acute hyponatremia Nasal congestion No signs of fever I would not give her any antibiotics Flonase and pseudoephedrine 1 dose DuoNeb Hyponatremia within settings of polydipsia, Patient has been drinking a lot of water lately because of sore throat Fluid restriction 800 mL/day Her sodium worsened with use of IV fluids in the ER requested hyponatremia work-up Patient is stating she is voiding clear-colored urine Enterocolitis No signs of sepsis I would give patient p.o. ciprofloxacin and Flagyl to avoid giving fluids through IV to biotics Full code Regular diet DVT prophylaxis on board Attestations Medical Necessity Statement*: Anticipating discharge within 48 hours Time Spent in Patient Care: 30 Coding Level of Care Code Acute Regulatory Coordinator for Kunal Osman Diagnoses Gastroenteritis K52.9 Acute hyponatremia E87.1 URI (upper respiratory infection) J06.9
[2022-01-17 04:07] LABS: Urine Random Sodium 10 mmol/L
[2022-01-17 04:35] LABS: Uric Acid 3.1 mg/dL (2.4-5.7)
[2022-01-17 04:39] LABS: Troponin 5 6HR Delta 0 ng/L (0-12)
[2022-01-17 04:42] LABS: Procalcitonin 0.11 ng/mL (0-0.5)
[2022-01-17 04:53] LABS: Cortisol Random 8.05 ug/dL (2.47-19.5)
[2022-01-17 06:33] LABS: Anion Gap 17.3 (5-19); Blood Urea Nitrogen 3 mg/dL (6-20); Calcium 9.1 mg/dL (8.5-10.5); Carbon Dioxide 20 mmol/L (22-29); Chloride 105 mmol/L (98-107); Glomerular Filtration Rate 94.7 mL/min (90-130); Glucose 106 mg/dL (65-115); Osmolality Calculated 285 mOsm/kg (285-295); Potassium 3.3 mmol/L (3.5-5.1); Sodium 139 mmol/L (136-145); Thyroid Stimulating Hormone 2.62 uIU/mL (0.27-4.20)
[2022-01-17] MEDS: metroNIDAZOLE 500 MG Tablet PO (07:33)
[2022-01-17] MEDS: enoxaparin 40 mg/0.4 mL Syringe SUBCUT (07:33)
[2022-01-17] MEDS: ciprofloxacin 500 mg Tablet PO (08:40)
[2022-01-17] MEDS: potassium chloride ER 20 mEq Tablet 40 MEQ PO (10:22)
[2022-01-17 10:52] LABS: Anion Gap 12.5 (5-19); Blood Urea Nitrogen 4 mg/dL (6-20); Calcium 9.3 mg/dL (8.5-10.5); Carbon Dioxide 25 mmol/L (22-29); Chloride 104 mmol/L (98-107); Glomerular Filtration Rate 94.7 mL/min (90-130); Glucose 116 mg/dL (65-115); Osmolality Calculated 282 mOsm/kg (285-295); Potassium 4.5 mmol/L (3.5-5.1); Sodium 137 mmol/L (136-145)
--- NOTE | 2022-01-17 11:43 | PC.CHAP ---
Pastoral Care Encounter/Spiritual Assessment Type of Contact [] Declined shoe shanker visit [] Patient/Family/Request visit [] Outpatient visit [] Follow-up visit [] Physician referral [] Code/Alert []x Routine visit [] Staff referral [] Actively dying [] Patient sleeping [] Family support [] [] Out of room [] Palliative care [] x] Receiving care in room [] Pre-surgical visit [] Trauma [] Long length of stay [] ICU visit [] Other: Relational/Emotional Strength [] Patient feels connected with others/family/visitors/staff [] Distress [] Loneliness/isolation [] Abandonment Spirituality of Patient [] Person of Jeannette [] Attends Congregational of their Jeannette [] Believes in Prayer [] Reads Bible or Latter-Day materials [] There are Spiritual issues to be addressed Stamp Maker Interventions [] Prayer [] Active listening [] Non-anxious presence [] Spiritual/emotional support [] Crisis/trauma care [] Spiritual counseling [] Bereavement support [] Provided bereavement packet [] Provided Bible/devotional materials [] Provided toy/stuffed animal, coloring book to patient or family member [] Provided Communion [] Anointing/[place] [] Salvation [] Completed spiritual assessment [] Other: Impact on Illness or Injury [] Angry [] Fearful [] Anxious [] Often cries [] Exhaustion [] Unable to work [] Unable to attend faith [] Unable to walk/stand [] Unable to read [] Unable to drive [] Unable to eat/drink [] Unable to sleep [] Unable to be with family [] Patient intubated [] Other: Summary Time spent with patient
--- NOTE | 2022-01-17 11:47 | P.DS_ITS ---
Discharge Providers Date of Admission: 01/17/22 04:31 Date of Discharge: January 17, 2022 Attending Provider at Admission: Adalberto Aragon MD Attending Provider at Discharge: Williams Tsai MD Diagnoses at Discharge Discharge Diagnosis (1) Gastroenteritis: Status: Acute (2) Acute hyponatremia: Status: Acute (3) URI (upper respiratory infection): Status: Acute Reason for Visit Reason for Visit: CP Hospital Course Hospital Course Neyda presented to the hospital with nasal congestion, sore throat and was found to be hyponatremic. This worsened in the emergency department and she was placed on observation. She had been drinking a significant amount of free water prior to her emergency department visit, concerned she might be dehydrated. She also received normal saline in the ER. When I evaluated her she stated she had some nasal congestion, but otherwise was doing well. She had been up and ambulatory. She felt significantly better and wished to go home. She wondered what she could take for nasal congestion. She had flu, coronavirus testing that was negative. There was some concerns with colitis on her CT. In discussion with the patient we agreed for 5 days total of antibiotics for this. She had h ad some loose stools and vomiting. Rapid strep was also completed and negative. At time of discharge her sodium was 137. She will follow-up with her primary care provider in 3 to 4 days with a BMP at that time. She was instructed to return sooner for any concerns. She agreed with the plan. Cortisol and TSH were checked and normal.No fluid restriction or salt tablets on discharge. Physical Exam Narrative: General exam no distress Neck is supple no lymphadenopathy thyromegaly Cardiovascular regular rate and rhythm Lungs clear Abdomen is soft, positive bowel sounds Extremities no sinus clubbing edema Neuro no focal deficits Discharge Data Studies Completed and Pending Completed Studies During Hospitalization Category Date Time Status CT abdomen pelvis w con* [id number] Stat Cat Scan 01/16/22 23:[address] head wo con* [id number] Stat Cat Scan 01/16/22 23:57 Completed XR chest 1V portable [id number] Stat Exams 01/16/22 22:18 Completed Pending at discharge Category Date Time Status Basic Metabolic Panel Q4H Lab 01/17/22 13:29 Ordered Basic Metabolic Panel Q4H Lab 01/17/22 17:29 Ordered Basic Metabolic Panel Q4H Lab 01/17/22 21:29 Ordered Osmolality Serum Routine Lab 01/17/22 Received Streptococcus Culture Group A Stat Lab 01/16/22 22:48 Received Radiology Impressions Chest X-Ray 01/16/22 22:18 IMPRESSION: No acute findings. Head CT 01/16/22 23:57 IMPRESSION: No acute intracranial abnormality. Abdomen/Pelvis CT 01/16/22 23:58 IMPRESSION: Prominent in the small bowel and colon may reflect an enterocolitis in the appropriate clinical setting. Laboratory Results WBC 7.9 10^3/uL (4.0-10.0) 01/16/22 22:20 RBC 4.69 10^6/uL (4.1-5.3) 01/16/22 22:20 Hgb 13.3 g/dL (11.5-15.3) 01/16/22 22:20 Hct 41.0 % (37.0-47.0) 01/16/22 22:20 MCV 87.4 fl (81-99) 01/16/22 22:20 MCH 28.4 pg (28.0-34.0) 01/16/22 22:20 MCHC 32.4 g/dL (30.0-36.0) 01/16/22 22:20 RDW 12.8 % (12.1-15.1) 01/16/22 22:20 Plt Count 186 10^3/cmm (130-400) 01/16/22 22:20 MPV 9.6 fL (7.4-10.4) 01/16/22 22:20 Neut % (Auto) 75.6 % 01/16/22 22:20 Lymph % (Auto) 13.0 % 01/16/22 22:20 [place] % (Auto) 9.5 % 01/16/22 22:20 Eos % (Auto) 1.1 % 01/16/22 22:20 Baso % (Auto) 0.3 % 01/16/22 22:20 Neut # (Auto) 5.95 10^3/uL (1.8-7.7) 01/16/22 22:20 Lymph # (Auto) 1.0 10^3/uL (0.8-4.8) 01/16/22 22:20 [place] # (Auto) 0.8 10^3/uL (0.2-0.9) 01/16/22 22:20 Eos # (Auto) 0.1 10^3/uL (0.0-0.8) 01/16/22 22:20 Baso # (Auto) 0.0 10^3/uL (0.0-0.1) 01/16/22 22:20 Nucleated RBC % (auto) 0 % 01/16/22 22:20 Nucleated RBCs # 0.0 /100WBC 01/16/22 22:20 Sodium 137 mmol/L (136-145) 01/17/22 10:11 Potassium 4.5 mmol/L (3.5-5.1) 01/17/22 10:11 Chloride 104 mmol/L (98-107) 01/17/22 10:11 Carbon Dioxide 25 mmol/L (22-29) 01/17/22 10:11 Anion Gap 12.5 (5-19) 01/17/22 10:11 BUN 4 mg/dL (6-20) L 01/17/22 10:11 Creatinine 0.7 mg/dL (0.5-0.9) 01/17/22 10:11 GFR Calculation 94.7 mL/min (90-130) 01/17/22 10:11 Glucose 116 mg/dL (65-115) H 01/17/22 10:11 Calculated Osmolality 282 mOsm/kg (285-295) L 01/17/22 10:11 Uric Acid 3.1 mg/dL (2.4-5.7) 01/17/22 04:10 Calcium 9.3 mg/dL (8.5-10.5) 01/17/22 10:11 Total Bilirubin 0.4 mg/dL (0.15-1.2) 01/16/22 22:20 AST 36 U/L (0-32) H 01/16/22 22:20 ALT 75 U/L (0-33) H 01/16/22 22:20 Alkaline Phosphatase 63 U/L (35-105) 01/16/22 22:20 Troponin T Baseline 6 ng/L (0-10) 01/16/22 22:20 Troponin T 120 Minute 6.00 ng/L (0-10) 01/17/22 01:34 Delta Troponin T 0 ABS# (0-10) 01/17/22 01:34 Troponin T Hi Sens 6Hr 6.00 ng/L (0-10) 01/17/22 04:10 Troponin T Hi Sens 6Hr Delta 0 ng/L (0-12) 01/17/22 04:10 Total Protein 6.7 g/dL (6.6-8.7) 01/16/22 22:20 Albumin 3.8 g/dL (3.5-5.2) 01/16/22 22:20 Globulin 2.9 g/dL (1.3-4.6) 01/16/22 22:20 Procalcitonin 0.11 ng/mL (0-0.5) 01/17/22 04:10 TSH 2.62 uIU/mL (0.27-4.20) 01/17/22 04:10 TSH Cancelled 01/17/22 04:10 Random Cortisol 8.05 ug/dL (2.47-19.5) 01/17/22 04:10 Urine Color Colorless (Yellow) 01/16/22 22:54 Urine Appearance Clear (CLEAR) 01/16/22 22:54 Urine pH 6.5 (5-7) 01/16/22 22:54 Ur Specific [place] 1.000 (1.005-1.030) L 01/16/22 22:54 Urine Protein Neg (Negative) 01/16/22 22:54 Urine Glucose (UA) Norm (Normal) 01/16/22 22:54 Urine Ketones 1+ (Negative) H 01/16/22 22:54 Urine Blood Neg (Negative) 01/16/22 22:54 Urine Nitrate Negative (Negative) 01/16/22 22:54 Urine Bilirubin Neg (Negative) 01/16/22 22:54 Urine Urobilinogen Neg mg/dL (Negative) 01/16/22 22:54 Ur Leukocyte Esterase Negative (Negative) 01/16/22 22:54 Ur Random Sodium 10 mmol/L 01/16/22 22:54 Urine Opiates Screen Negative ng/mL (Negative) 01/16/22 22:54 Ur Barbiturates Screen Negative ng/mL (Negative) 01/16/22 22:54 Ur Phencyclidine Scrn Negative ng/mL (Negative) 01/16/22 22:54 Ur Amphetamines Screen Negative ng/mL (Negative) 01/16/22 22:54 U Benzodiazepines Scrn Negative ng/mL (Negative) 01/16/22 22:54 Urine Cocaine Screen Negative ng/mL (Negative) 01/16/22 22:54 U Marijuana (THC) Screen Negative ng/mL (Negative) 01/16/22 22:54 Influenza Type A Ag negative (Negative) 01/16/22 22:48 Influenza Type B Ag negative (Negative) 01/16/22 22:48 SARS-CoV-2 Ag (Rapid) negative (Negative) 01/16/22 22:48 Group A Strep Rapid Negative (Negative) 01/16/22 22:48 Vitals Last Vital Signs Temp 98.5 F 01/17/22 05:05 Pulse 75 01/17/22 10:31 Resp 18 01/17/22 10:31 BP 105/70 01/17/22 05:05 Pulse Ox 98 01/17/22 10:31 O2 Del Method 01/17/22 10:31 Discharge Plan Discharge Patient Disposition: Home Condition: Stable Prescriptions: New metronidazole 500 mg Tablet 500 mg PO Q8H Qty: 12 0RF ciprofloxacin HCl 500 mg Tablet 500 mg PO BID Qty: 8 0RF Flonase Allergy Relief 50 mcg/actuation spray,suspension 2 spray intranasal DAILY Qty: 16 0RF Rx Instructions: administer into each nostril Discharge Orders: Discharge Order (Routine); Ordered 01/17/22 Ordered By: Williams Tsai Referrals: Noble Roche FNP-C [Nurse Practitioner] - 01/21/22 10:00 am (BRING ALL MEDICINES IN BOTTLES TO APPOINTMENT) Discharge Diet: Regular Discharge Activity: Increase activity as tolerated Patient Instructions: Ciprofloxacin (By mouth), Metronidazole (By mouth), Fluticasone (Into the nose), Upper Respiratory Infection (ED), Opioid Safety Activity Restrictions/Additional Instructions: Take all medicine as prescribed Make sure primary care provider is assigned and can follow patient up in 3 to 5 days BMP on follow-up Okay to rehydrate with Gatorade. Do not drink large amounts of free water Patient's Health Concerns: Low-sodium Assessment: Now resolved, likely secondary to drinking large amounts of free water during illness Plan of Treatment: Antibiotics as noted Recheck sodium as outpatient Goals: No recurrent hospitalizations Discharge Attestations Time Spent in Discharge Care*: greater than 30 min Quality Metrics Clinical Quality Measures [ No reported AMI, CVA or VTE this stay] Coding Level of Care Code Acute Chg FW DC note Diagnoses Gastroenteritis K52.9 Acute hyponatremia E87.1 URI (upper respiratory infection) J06.9
[2022-01-18 15:44] LABS: Osmolality Serum 257 mOsm/kg (278-305)
== END 2022-01-17 13:19 | disposition home or self-care (01) ==
LOC: ER 01-17 03:11 → MEDSURG 01-17 04:31
PROVIDERS: Emergency Medicine; Admitting Provider Internal Medicine; Emergency Provider Emergency Medicine; Visit Provider Internal Medicine
DX: K52.9 Noninfective gastroenteritis and colitis, unspecified (principal); E87.1 Hypo-osmolality and hyponatremia; J06.9 Acute upper respiratory infection, unspecified
CPT/HCPCS: 36415; 70450; 71045; 74177; 80048; 80053; 80306; 81003; 82533; 83930; 84145; 84300; 84443; 84484; 84550; 85025; 87081; 87426; 87804; 87880; 93005; 94640; 96361; 96372; 96374; 99285; G0378; J1650; J1885; J7030; Q9967

== ENCOUNTER 2022-11-01 09:00 | Emergency (ER) | payer MEDICAID, SELFPAY ==
[2022-11-01 09:10] VITALS: BP 143/66; PULSE 67; RESP 16; TEMP 36.5; O2SAT 100
--- NOTE | 2022-11-01 09:16 | W.ED.EAR ---
HPI - Ear Problem General: Chief complaint: Ear Stated complaint: right ear pain Time Seen by Provider: 11/01/22 09:02 Source: patient Mode of arrival: ambulatory Limitations: no limitations History of Present Illness: 37-year-old female states been having right-sided headache along with some tenderness over her ethmoid sinus she been having some pressure in her ear and right ear pain as well. She denies any severe pain denies any fever she had no cough or congestion. Denies any worsening proving factors Associated symptoms: Reports ear or mastoid pain and headache(s); Denies fever(s) or neck pain Review of Systems Const: Denies: fever(s) or chills ENMT: Reports: ear or mastoid pain; Denies: throat pain or dental pain Card: Denies: chest pain Resp: Denies: dyspnea GI: Denies: abdominal pain, nausea, vomiting or diarrhea Musc: Denies: neck pain or back pain Skin/Breast: Denies: rash Neuro: Reports: headache(s) PFS ED PFSH: Medical History Acute urinary tract infection Surgical History History of partial hysterectomy Family History Denies family history of CAD (coronary artery disease) Social History Smoking and tobacco status: never smoked Alcohol intake: never Substance/Drug Use: never Lives independently: Yes Housing: Manufactured/Mobile home Marital status: Single Female Reproductive History: Para: 4 Spontaneous abortions: No Physical Exam Const: COMMON NORMALS: no acute distress, average body habitus and patient oriented x3 HENMT: COMMON NORMALS: normocephalic and atraumatic HEAD & SCALP: normocephalic and atraumatic TYMPANIC MEMBRANE: TM normal on the right OTHER: tenderness over right ethmoid sinus Neck/C-Spine: COMMON NORMALS: supple Chest: COMMONS NORMALS: normal inspection of the chest Resp: COMMON NORMALS: normal respiratory effort Extremity: COMMON NORMALS: normal to inspection Neuro: COMMON NORMALS: patient oriented x3 Psych: COMMON NORMALS: mental status grossly normal Skin: COMMON NORMALS: no rashes or lesions noted GENERAL SKIN EXAM: no rashes or lesions noted Course Vital Signs: Vital signs: Vital Signs Temperature 97.7 F 11/01/22 09:10 Pulse Rate 65 11/01/22 09:20 Respiratory Rate 16 11/01/22 09:20 Blood Pressure 143/66 11/01/22 09:20 Pulse Oximetry 100 11/01/22 09:20 Oxygen Delivery Me thod Room Air 11/01/22 09:20 MDM - Ear Medical Decision Making pt presents here with head and ear pain. Pt tender over ethmoid sinus likely a sinusitis. no otitis media no signs of mastoiditis. Will place on keflex she is to return if worsening. Medical Records I reviewed the patient's medical records. No radiology studies performed this visit Discharge Plan Discharge Patient Disposition: Home Clinical Impression: Sinusitis Condition: Stable Prescriptions: New cephalexin 500 mg capsule 500 mg PO TID 7 Days Qty: 21 0RF No Action doxycycline hyclate 100 mg capsule 100 mg PO BID 10 Days Qty: 20 0RF Flonase Allergy Relief 50 mcg/actuation spray,suspension 2 spray intranasal DAILY Qty: 16 0RF Rx Instructions: administer into each nostril Discharge Orders: Discharge ED (Routine); Ordered 11/01/22 Ordered By: Kevin Huff Discharge Diet: Advance as tolerated Discharge Activity: Resume usual activity Patient Instructions: Sinusitis (ED) Coding Level of Care Code ED Personal Secretary for Kunal Osman
[2022-11-01 09:20] VITALS: BP 143/66; PULSE 65; RESP 16; O2SAT 100
[2022-11-01] MEDS: dexamethasone 10 mg/mL INJ IM (09:23)
[2022-11-01 09:43] VITALS: BP 107/44; PULSE 64; RESP 16; O2SAT 99
== END 2022-11-01 09:44 | disposition home or self-care (01) ==
PROVIDERS: Emergency Provider Emergency Medicine
DX: J32.9 Chronic sinusitis, unspecified (principal)
CPT/HCPCS: 96372; 99284; J1100

== ENCOUNTER → 2023-03-17 10:18 | Outpatient (BNVA) | payer MEDICAID, SELFPAY | PROVIDERS: Visit Provider Nurse Practitioner Family | DX: R52 Pain, unspecified (principal); R46.89 Other symptoms and signs involving appearance and behavior | CPT/HCPCS: 80053; 80307; 84443 ==

== ENCOUNTER 2023-12-06 19:21 | Inpatient (IN) | payer SELFPAY ==
[2023-12-06 19:23] VITALS: BP 120/66; PULSE 63; RESP 18; TEMP 36.9; O2SAT 99; BMI 19.5
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
--- NOTE | 2023-12-06 19:32 | ECG_ITS ---
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 Measurements Intervals [place] Rate: 59 P: 51 RI: 134 QRS: 52 QRSD: 76 T: 35 QT: 423 QTc: 420 Interpretive Statements SINUS BRADYCARDIA LOW QRS VOLTAGE IN PRECORDIAL LEADS [QRS DEFLECTION < 1.0 mV IN CHEST LEADS] SEPTAL MYOCARDIAL INFARCTION , OF INDETERMINATE AGE [40+ ms Q WAVE IN V1/V2] Compared to ECG 01/17/2022 00:51:33 Low QRS voltage now present Myocardial infarct finding now present Sinus rhythm no longer present Electronically Signed On 12-06-2023 22:39:06 CDT by Malissa Cheng M.D. [email or web address]
[2023-12-06 19:46] LABS: Bilirubin Urine Negative (Negative); Blood Urine Negative (Negative); Glucose Urine UA Negative (Normal); Ketones Urine Trace (Negative); Leukocyte Esterase Urine 2+ (Negative); Nitrate Urine Positive (Negative); Protein Urine Trace (Negative); Specific Gravity, Urine 1.029 (1.005-1.030); Urine Appearance Cloudy (CLEAR); Urine Color Yellow (Yellow)
[2023-12-06 19:51] LABS: Bacteria Urine EXCEEDS /hpf; Hyaline Casts Urine 6.75 /lpf; RBC Urine 0-2 /hpf (0-2); Squamous Epithelial Cell Urine 0-5 /hpf (0-5); WBC Urine 21-50 /hpf (0-5)
[2023-12-06 19:56] LABS: Amphetamines Screen Urine Negative (Negative); Barbiturates Screen Urine Negative (Negative); Benzodiazepines Screen Urine Negative (Negative); Cocaine Screen Urine Negative (Negative); Opiate Screen Urine Negative (Negative); PCP Screen Urine Negative (Negative); THC Screen Urine Negative (Negative)
[2023-12-06 19:59] LABS: Basophils # 0.1 10^3/uL (0.0-0.1); Basophils % 0.7 %; Eosinophils # 0.2 10^3/uL (0.0-0.8); Eosinophils % 2.4 %; Hematocrit 40.2 % (36-47); Lymphocytes % 30.4 %; Mean Corpuscular HGB Conc 32.3 g/dL (30-55); Mean Corpuscular Volume 86.6 fl (85-98); Mean Platelet Volume 9.6 fL (7.4-10.4); Monocytes # 0.5 10^3/uL (0.2-0.9); Monocytes % 6.7 %; Neutrophils # 3.96 10^3/uL (1.8-7.7); Neutrophils % 59.2 %; Nucleated Red Blood Cells % 0 %; Platelet Count 218 10^3/cmm (157-399); Red Blood Count 4.64 10^6/uL (3.85-5.65); Red Cell Distribution Width 12.9 % (12.1-15.1)
--- NOTE | 2023-12-06 19:59 | PC.NURSE ---
96 Hour Involuntary Hold Patient Rights have been read to the patient and a copy of the same has been given to her. Pipe Out Worker Nava De Anda was present at chair side at the time of presentation of Rights.
[2023-12-06 20:09] LABS: HCG, Serum Qual Negative (Negative)
[2023-12-06 20:10] LABS: Add Urine Culture? Yes
[2023-12-06 20:29] LABS: Alanine Aminotransferase 11 U/L (0-33); Albumin Level 4.4 g/dL (3.5-5.2); Alkaline Phosphatase 65 U/L (35-105); Aspartate Amino Transferase 13 U/L (0-32); Blood Urea Nitrogen 11 mg/dL (6-20); Carbon Dioxide 27 mmol/L (22-29); Chloride 107 mmol/L (98-107); Creatinine Clr Calc Pharmacy 80.5347; Globulin 2.6 g/dL (1.3-4.6); Glomerular Filtration Rate 80.3 mL/min (90-130); Glucose 72 mg/dL (65-115); Osmolality Calculated 292 mOsm/kg (285-295); Salicylate 0.5 mg/dL (3-10); Sodium 142 mmol/L (136-145); Thyroid Stimulating Hormone 2.72 uIU/mL (0.27-4.20); Total Bilirubin 0.3 mg/dL (0.15-1.2)
[2023-12-06 20:38] LABS: Acetaminophen < 5.0 ug/mL (10-30); Alcohol Level < 10 mg/dL (0-10)
[2023-12-06] MEDS: cephALEXin 500 mg Capsule PO (21:29)
[2023-12-06 21:48] VITALS: BP 123/66; PULSE 62; RESP 16; O2SAT 98
[2023-12-06 21:57] VITALS: BP 107/58; PULSE 92; RESP 19; TEMP 36.5; O2SAT 96
[2023-12-07 06:00] VITALS: BP 106/64; PULSE 53; RESP 16; TEMP 36.3; O2SAT 99
[2023-12-07] MEDS: cephALEXin 500 mg Capsule PO ×3 (08:40→20:08)
[2023-12-07 12:29] VITALS: BP 103/66; PULSE 62; RESP 18; TEMP 36.6; O2SAT 97
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
[2023-12-07 19:25] VITALS: BP 93/55; PULSE 64; RESP 16; TEMP 37.1; O2SAT 99
[2023-12-07] MEDS: trazodone 50 mg Tablet PO (20:08)
[2023-12-08 06:00] VITALS: BP 93/67; PULSE 85; RESP 16; TEMP 36.2; O2SAT 99
[2023-12-08] MEDS: cephALEXin 500 mg Capsule PO ×3 (08:57→20:14)
[2023-12-08 14:00] VITALS: BP 100/67; PULSE 72; RESP 18; TEMP 37.1; O2SAT 99
--- NOTE | 2023-12-08 16:10 | P.NPUPN_ITS ---
Subjective NPU 2 Subjective: 38-year-old female admitted with complai nts of declining self-care and increased paranoia involuntarily at the request of her family. The patient had isolated herself in the room. She reported no side effects from any medications prescribed here. She had reported adequate sleep. She reported no hallucinations and reported her mood as fine. Mental Status Exam 2 MSE Comments: Patient is pleasant and cooperative on interview. Her hygiene appeared poor. There was no evidence of any abnormal involuntary motor movements tics or tremors appreciated. Her speech was productive and normal in volume with decreased rate noted. Her thought process was linear logical and goal- directed. Her thought content showed no evidence of active homicidal or suicidal ideation. There was no clear evidence of delusional thinking. She did appear to have some relative distrust of [employer] systems. She did not appear to be responding to internal stimuli. Her attention span appeared fair. Her mood was described as okay. Her affect was subdued. Her thought process was linear logical and goal-directed. Her thought content showed no evidence of active homicidal or suicidal ideation. Her recent remote memory were grossly intact. She was alert and oriented x 3. Her insight is limited. Her judgment appeared poor. Her impulse control appeared limited as well. Vitals/I&O/Wt Last Vital Signs Temp 97.2 F L 12/08/23 06:00 Pulse 85 12/08/23 06:00 Resp 16 12/08/23 06:00 BP 93/67 12/08/23 06:00 Pulse Ox 99 12/08/23 06:00 O2 Del Method Room Air 12/06/23 21:24 Weight last 48 hrs Weight 51.71 kg Data NPU 12/06/23 19:41 12/06/23 19:41 Micro: Microbiology 12/06/23 19:37 Urine Culture - Preliminary Urine,Clean Catch Gram Negative Rods Microbiology 12/06/23 19:37 Urine,Clean Catch Urine Culture - Preliminary Gram Negative Rods A&P Assessment and plan (1) Unspecified psychosis: (2) Acute paranoia: (3) PTSD (post-traumatic stress disorder): Plan 38-year-old female brought in involuntarily after some family members concern regarding patient having increased paranoia and unusual behavior. She will continue to be observed here under the auspices of an involuntary hold. #1.? Engage patient in individual milieu and group therapy. #2?? Recommend sober living treatment at the highest level of care to which the patient is willing to commit #3??? Patient refusing medication, will continue to monitor for mood symptoms or psychotic symptoms. #4?? TO-15 minute checks? #5?? Will attempt to gather collateral information Involuntary Hold Information 2 96 Hour Hold: 96 Hour Involuntary Admission: Yes 96 Hour Hold Ending Date: 12/12/23 96 Hour Hold Ending Time: 19:35 Other Hold: Hold End Date: 12/12/23 Attestations NPU 2 Medical Necessity Statement*: Inpatient hospitalization is medically necessary and deemed to ?be ?the clinically appropriate intervention ?at this time.? We will monitor/initiate medications and make changes as indicated.? The patient?s likely length of stay 3-5 days. Coding Level of Care Code Acute Code for Chg Fwd Diagnoses Unspecified psychosis F29 Acute paranoia F22 PTSD (post-traumatic stress disorder) F43.10
[2023-12-08 19:57] VITALS: BP 98/60; PULSE 79; RESP 16; TEMP 37.2; O2SAT 97
[2023-12-09 06:00] VITALS: BP 97/47; PULSE 70; RESP 16; TEMP 36.9; O2SAT 99
[2023-12-09] MEDS: cephALEXin 500 mg Capsule PO ×2 (08:04→14:36)
[2023-12-09 14:00] VITALS: BP 100/67; PULSE 71; RESP 16; TEMP 36.5; O2SAT 100
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
[2023-12-09 16:57] VITALS: BP 100/67; PULSE 71; RESP 16; TEMP 36.5; O2SAT 100
== END 2023-12-09 18:00 | disposition home or self-care (01) | DRG 885 ==
LOC: ER 19:44 → NP 20:12
PROVIDERS: Admitting Provider Psychiatry & Neurology Psychiatry; Emergency Provider Emergency Medicine; Visit Provider Psychiatry & Neurology Psychiatry
DX: F29 Unspecified psychosis not due to a substance or known physiological condition (principal); Z59.01 Sheltered homelessness; F22 Delusional disorders; Z87.440 Personal history of urinary (tract) infections; Z90.710 Acquired absence of both cervix and uterus; F43.10 Post-traumatic stress disorder, unspecified
CPT/HCPCS: 36415; 80053; 80306; 80307; 81001; 84443; 84703; 85025; 87077; 87086; 87186; 93005; 97150; 97165; 99285

== ENCOUNTER 2024-01-27 15:59 | Emergency (ER) | payer MEDICAID, SELFPAY ==
[2024-01-27 16:05] VITALS: BP 105/57; PULSE 64; RESP 17; TEMP 36.7; O2SAT 98; BMI 20.5
--- NOTE | 2024-01-27 16:25 | W.ED.EAR ---
HPI - Ear Problem General: Chief complaint: Ear Stated complaint: pressure in ear Time Seen by Provider: 01/27/24 16:06 Source: patient Mode of arrival: ambulatory Limitations: no limitations History of Present Illness: 38-year-old female states has been having right-sided ear pain has been going on for the last few days states she feels like there is pressure in her ear she denies any fevers denies headache she had no cough or congestion Associated symptoms: Reports ear or mastoid pain; Denies fever(s), headache(s) or neck pain Related Data Allergies Allergy/AdvReac Type Severity Reaction Status Date / Time clarithromycin [From Biaxin] Allergy ALGY-Hives Verified 03/17/23 09:08 Review of Systems Const: Denies: fever(s), chills, body aches or change in appetite ENMT: Reports: ear or mastoid pain; Denies: throat pain or dental pain Card: Denies: chest pain Resp: Denies: dyspnea GI: Denies: abdominal pain, nausea, vomiting or diarrhea Musc: Denies: neck pain or back pain Skin/Breast: Denies: rash Neuro: Denies: headache(s) PFSH ED PFSH: Medical History Acute urinary tract infection Surgical History History of partial hysterectomy Family History Denies family history of CAD (coronary artery disease) Social History Smoking and tobacco/nicotine status: never used tobacco/nicotine Alcohol intake: never Substance/Drug Use: never Lives independently: Yes Housing: Manufactured/Mobile home Marital status: Single Female Reproductive History: Para: 4 Spontaneous abortions: No Physical Exam Const: COMMON NORMALS: no acute distress, patient oriented x3 and healthy appearing HENMT: COMMON NORMALS: normocephalic and atraumatic HEAD & SCALP: normocephalic and atraumatic TYMPANIC MEMBRANE: TM normal on the right Eye: COMMON NORMALS: Equal, round and reactive pupils present and EOMs intact bilaterally PUPIL: Yes Equal, round and reactive pupils present Neck/C-Spine: COMMON NORMALS: full ROM and supple Chest: COMMONS NORMALS: normal inspection of the chest Resp: COMMON NORMALS: normal respiratory effort Cardio: COMMON NORMALS: regular rate RATE: regular rate Extremity: COMMON NORMALS: normal to inspection and full ROM Neuro: COMMON NORMALS: patient oriented x3, moves all extremities and no focal motor deficits Psych: COMMON NORMALS: mental status grossly normal, Normal thought process present and cooperative THOUGHT PROCESS: Normal thought process present Skin: COMMON NORMALS: no rashes or lesions noted and no wounds GENERAL SKIN EXAM: no rashes or lesions noted Course Vital Signs: Vital signs: Vital Signs Temperature 98.0 F 01/27/24 16:05 Pulse Rate 64 01/27/24 16:05 Respiratory Rate 17 01/27/24 16:05 Blood Pressure 105/57 01/27/24 16:05 Pulse Oximetry 98 01/27/24 16:05 Oxygen Delivery Me thod Room Air 01/27/24 16:05 MDM - Ear Medical Decision Making Patient presents here with right ear pain her exam here is benign no signs of any infection no signs of mastoiditis or otitis media or externa she is stable for discharge she is to take some Benadryl follow-up with PCP take Motrin return if worsening. No radiology studies performed this visit Discharge Plan Discharge Patient Disposition: Home Clinical Impression: Ear pain, right Condition: Stable Discharge Orders: Discharge ED (Routine); Ordered 01/27/24 Ordered By: Kevin Huff Patient Instructions: Earache (ED) Coding Level of Care Code ED Lactation Consultant for Kunal Osman
== END 2024-01-27 16:35 | disposition home or self-care (01) ==
PROVIDERS: Emergency Provider Emergency Medicine
DX: H92.01 Otalgia, right ear (principal)
CPT/HCPCS: 99282